=== PATIENT | male | born 2005 | race Two or more races ===

== ENCOUNTER 2025-02-10 11:52 | Emergency (ER) | payer SELFPAY ==
[2025-02-10 12:25] VITALS: BP 120/66; PULSE 103; RESP 18; TEMP 36.7; O2SAT 97; BMI 26.1
--- NOTE | 2025-02-10 12:30 | PD.EDSKIN ---
ED Skin Abcess FB-RME/HPI General Chief complaint: Skin/Abscess/Foreign Body Stated complaint: INFECTION LEFT KNEE Time Seen by Provider: 02/10/25 12:02 Arrival date/time: 02/10/25 11:52 This is a 19-year-old male that comes in with complaints of erythema to left knee. Patient states he was picking fruit a couple of days ago and felt like something bit his left knee. Patient states he started noticing some erythema around his knee and recently started having some drainage to his left knee. Patient denies any other symptoms. Patient complains of pain. Related Data Previous Rx's ?Medication ?Instructions ?Recorded cephalexin 500 mg capsule 500 mg PO Q8H 7 days #21 caps 02/10/25 sulfamethoxazole 800 1 tab PO Q12H 7 days #14 tabs 02/10/25 mg-trimethoprim 160 mg tablet (Bactrim DS) Allergies Allergy/AdvReac Type Severity Reaction Status Date / Time No Known Allergies Allergy Verified 02/10/25 11:56 Course Orders Category Date Time Status Acetaminophen Tab [Tylenol ES Tab] Med 02/10/25 12:29 Once 1,000 mg PO X1 ONE Ibuprofen Tab [Motrin Tab] Med 02/10/25 12:29 Once 800 mg PO X1 ONE Tet,Diphth,Pertuss(Acell)-Tdap [Boostrix Vacc] Med 02/10/25 12:29 Once 0.5 ml IMI .ONCE ONE cefTRIAXone [Rocephin] 1,000 mg Med 02/10/25 12:29 Ordered Lidocaine 1% 20 ml [Xylocaine 1% 20 ML] 2.1 ml IM X1 Vital Signs Vital signs: Vital Signs Temperature 98.0 F 02/10/25 12:25 Pulse Rate 103 H 02/10/25 12:25 Respiratory Rate 18 02/10/25 12:25 Blood Pressure 120/66 02/10/25 12:25 Pulse Oximetry (%) 97 02/10/25 12:25 Oxygen Delivery Method Room Air 02/10/25 12:25 Skin / Abscess / Foreign Body MDM Narrative MDM Narrative:: Will treat for cellulitis and early abscess. Patient told to use warm compresses over wound. Patient told to come back to the emergency room if symptoms change or worsen. Will send patient home with antibiotics. Medications / Prescriptions Medication administrations:: Medication Administration History Ceftriaxone Sodium 1,000 mg/ (Lidocaine HCl 2.1 ml) 0 mg IM X1 ONE Stop: 02/10/25 12:30 Discharge Plan Plan Patient Disposition: HOME (Self Care) Patient condition on transfer: Stable Prescriptions/Referrals Prescriptions/Med Rec: New cephalexin 500 mg capsule 500 mg PO Q8H 7 Days Qty: 21 0RF sulfamethoxazole-trimethoprim [Bactrim DS] 800-160 mg tablet 1 tab PO Q12H 7 Days Qty: 14 0RF Problem List Clinical Impression: Cellulitis Patient/Caregiver Discharge Instructions Discharge Activity: activity as tolerated Education Materials: ED Cellulitis Additional Instructions: Sanjana un huyen con mayer medico de cabecera en las proximas 24-48 horas. Regrese a la burak de emergencias si hay evidencia de que los signos o sintomas empeoran. Print Language: Tongan Stand Alone Forms: Susie Award Info., Patient Portal Info Letter PA/DIRECT SUPPORT STAFF MEMBER Supervising Physician PA/DIRECT SUPPORT STAFF MEMBER Supervising Physician: [email or web address]
[2025-02-10] MEDS: IBUPROFEN TAB 400 MG TABLET 800 MG PO (12:48)
[2025-02-10] MEDS: ACETAMINOPHEN 500 MG TABLET 1000 MG PO (12:49)
[2025-02-10] MEDS: DIPHTH,PERTUSS(ACELL),TET VAC 0.5 ML SYR- ADULT IMi (12:51)
[2025-02-10] MEDS: cefTRIAXone 1,000 MG, LIDOCAINE 1% 20 ML 2.1 ML IM (12:56)
== END 2025-02-10 19:51 | disposition home or self-care (01) ==
LOC: SERX 13:35
PROVIDERS: Emergency Provider Family Medicine
DX: L03.116 Cellulitis of left lower limb (principal); Z23 Encounter for immunization
CPT/HCPCS: 90471; 90715; 96372; 99283; J0696; J3490; A9270